=== PATIENT | male | born 1990 | race Caucasian/White ===

== ENCOUNTER → 2016-11-06 | Outpatient (REF) | payer OTHER ==
[~2016-11-06] MED LIST: /ESCI10TA OR; BUSP5TA PO; CYCL10TA PO; DEPA250T2 PO; DEPA500T2 PO; FLEXERIL PO; FLUO20CA8 PO; NAPR500T OR; NAPR500T2 PO; OMEP20TA7 OR
[2016-11-10 08:57] LABS: FREE T4 1.1 NG/DL (0.76-1.46)
== END ==
LOC: M SFHCPLAZ 14:03
DX: M54.6 Pain in thoracic spine (principal); F41.9 Anxiety disorder, unspecified

== ENCOUNTER 2018-06-25 00:05 | Emergency (ER) | payer OTHER ==
[2018-06-25 01:08] LABS: BASO % 0.3 % (0.0-1.0); EOS # 0.1 10^3/uL (0.0-0.50); EOS % 0.6 % (0.0-3.0); HEMATOCRIT 43.4 % (42.0-52.0); HEMOGLOBIN 15.2 g/dl (13.5-17.5); IMMATURE GRANULOCYTE % 0.4 % (0-3.0); LYMPH # 1.7 10^3/uL (1.5-6.5); LYMPH % 10.9 % (24.0-44.0); MEAN CORPUSCULAR HEMOGLOBIN 32.2 pg (27.0-33.0); MEAN CORPUSCULAR VOLUME 91.9 fl (80.0-96.0); MONO % 6.1 % (0.0-5.0); NEUTROPHILS # 12.7 10^3/uL (1.8-7.7); NEUTROPHILS % 81.7 % (36.0-66.0); PLATELET COUNT, AUTOMATED 143 10^3/uL (150-450); RED BLOOD COUNT 4.72 10^6/uL (4.30-6.10); RED CELL DISTRIBUTION WIDTH 12.1 % (11.5-14.5); WHITE BLOOD COUNT 15.5 10^3/uL (4.0-10.0)
[2018-06-25 01:33] LABS: ANION GAP 10 MEQ/L (8-16); BLOOD UREA NITROGEN 10 MG/DL (7-18); CALCIUM LEVEL 8.3 MG/DL (8.5-10.1); CARBON DIOXIDE LEVEL 24 MEQ/L (21-32); CHLORIDE LEVEL 110 MEQ/L (98-107); CREATININE FOR GFR 0.84 MG/DL (0.70-1.30); ETHYL ALCOHOL (ETHANOL) 0.164 % (0.000-0.010); GLOMERULAR FILTRATION RATE > 60.0 (>60); GLUCOSE, FASTING 90 MG/DL (70-100); POTASSIUM SERUM 3.5 MEQ/L (3.5-5.1); SODIUM LEVEL 144 MEQ/L (136-145)
[2018-06-25 01:48] LABS: AMPHETAMINES LEVEL URINE NEGATIVE (NEGATIVE); BARBITURATES URINE NEGATIVE (NEGATIVE); BENZODIAZEPINES URINE NEGATIVE (NEGATIVE); CANNABINOIDS URINE POSITIVE (NEGATIVE); COCAINE METABOLITE URINE NEGATIVE (NEGATIVE); METHADONE URINE NEGATIVE (NEGATIVE); OPIATES URINE NEGATIVE (NEGATIVE); PHENCYCLIDINE URINE NEGATIVE (NEGATIVE)
[2018-06-25] MEDS: ONDANSETRON 4MG/2ML VIAL (J2405) IV (02:04)
[2018-06-25] MEDS: MORPHINE 4 MG/ML 1ML VIAL/SYRINGE (J2270) IV (02:05)
== END 2018-06-25 03:12 | disposition short-term general hospital (02) ==
LOC: M ED 00:05
DX: S42.421A Displaced comminuted supracondylar fracture without intercondylar fracture of right humerus, initial encounter for closed fracture (principal); V49.88XA Car occupant (driver) (passenger) injured in other specified transport accidents, initial encounter; Y92.410 Unspecified street and highway as the place of occurrence of the external cause; Z79.899 Other long term (current) drug therapy
CPT/HCPCS: J2270

== ENCOUNTER 2019-08-15 19:59 | Emergency (ER) | payer OTHER, SELFPAY ==
[~2019-08-15] VITALS: Ht 170.2 cm; Wt 52.3 kg
[~2019-08-15 19:59] MED LIST changes: -/ESCI10TA OR; +FLUO20CA20 PO; -FLUO20CA8 PO; +LEXA1TAB OR; +NAPR-885 PO; -NAPR500T2 PO
[2019-08-15] MEDS ORDERED: KETOROLAC 30 MG/ML VIAL (J1885) IV ONE (22:30)
[2019-08-15] MEDS ORDERED: CLINDAMYCIN 600 MG in IV 1 EA IV ONE (22:30)
[2019-08-15 22:34] LABS: BASO % 0.3 % (0.0-1.0); EOS # 0.1 10^3/uL (0.0-0.5); EOS % 1.3 % (0.0-3.0); HEMATOCRIT 49.5 % (42.0-52.0); HEMOGLOBIN 16.3 g/dl (13.5-17.5); LYMPH # 2.2 10^3/uL (1.5-5.0); LYMPH % 19.9 % (24.0-44.0); MEAN CORPUSCULAR HEMOGLOBIN 31.8 pg (27.0-33.0); MEAN CORPUSCULAR HGB CONC 32.9 g/dl (32.0-36.5); MEAN CORPUSCULAR VOLUME 96.5 fl (80.0-96.0); MONO % 9.6 % (0.0-5.0); NEUTROPHILS # 7.4 10^3/uL (1.5-8.5); NEUTROPHILS % 68.5 % (36.0-66.0); PLATELET COUNT, AUTOMATED 194 10^3/uL (150-450); RED BLOOD COUNT 5.13 10^6/uL (4.30-6.10); WHITE BLOOD COUNT 10.8 10^3/uL (4.0-10.0)
[2019-08-15 22:54] LABS: ERYTHROCYTE SEDIMENTATION RATE 7 mm/hr (0-15)
[2019-08-15] MEDS ORDERED: ISOVUE-370 76% 100ML VIAL (Q9967) As Ordered ONE (23:17)
--- NOTE | 2019-08-16 00:29 | REPVR ---
PROCEDURE INFORMATION: Exam: CT Maxillofacial With Contrast Exam date and time: 08/15/2019 11:33 PM Age: 28 years old Clinical history: Jaw pain; Additional info: Tooth abscess, PT tender L maxillary sinus area, swelling TECHNIQUE: Imaging protocol: Computed tomography images of the face with intravenous contrast. Radiation optimization: All CT scans at this facility use at least one of these dose optimization techniques: automated exposure control; mA and/or kV adjustment per patient size (includes targeted exams where dose is matched to clinical indication); or iterative reconstruction. Contrast material: ISOVUE 370; Contrast volume: 75 ml; Contrast route: IV; COMPARISON: CT Head without contrast 06/25/2018 12:59:14 AM FINDINGS: Orbits: The globes and orbits are intact and normal in appearance. Mastoid air cells: Normal. No mastoid effusion. Auditory system: The middle ear spaces are clear. Sinuses: The sinuses are clear. No air-fluid levels are noted in the sinuses. Bones/joints: There is no fracture or dislocation. The temporomandibular joints are unremarkable. Nasal cavity: There is a 4 mm nasal septal spur projecting to the left of midline. Dental: Several teeth are missing. There are dental caries and a periapical abscess involving the right upper third molar. There are dental caries involving the right upper first and second molars and right upper canine. There are dental caries and a periapical abscess involving the right upper lateral incisor. There are dental caries and a periapical abscess involving the left upper lateral incisor. There are dental caries involving the left upper canine and left upper first premolar. There are dental caries involving the left lower first premolar, left lower canine, right lower lateral incisor, and right lower canine. The periapical abscesses involving both upper lateral incisors erode the buccal cortex of the maxillary alveolar ridge. Nasopharynx: Unremarkable. Oropharynx: There is a punctate calcification in the left palatine tonsil, which represents a palatine tonsillolith and is the sequela of prior infection and/or inflammation. No significant tonsillar hypertrophy. No tonsillar or peritonsillar abscess. Submandibular/Parotid glands: Unremarkable. Soft tissues: There is edema in the soft tissues in the left maxillary region, which is compatible with a left facial cellulitis. There is a 9 mm x 6 mm x 15 mm fluid collection containing punctate foci of gas in the left side of the upper lip adjacent to the left upper canine tooth (image 17 of the coronal series 204). IMPRESSION: Multiple dental caries and periapical abscesses as detailed above, a 9 mm x 6 mm x 15 mm abscess in the left side of the upper lip adjacent to the left upper canine tooth, and left facial cellulitis. Electronically signed by: Neto Catalan On 08/16/2019 00:28:54 AM
[2019-08-16] MEDS ORDERED: AUGM875T28 PO (00:52)
[2019-08-16] MEDS ORDERED: PRED20TA PO (00:52)
[2019-08-16] MEDS ORDERED: AUGMENTIN 875 MG TAB PO ONE (01:00)
[2019-08-16] MEDS ORDERED: predniSONE 20 MG TAB PO ONE (01:00)
[2019-08-16 01:04] VITALS: BP 134/76
== END 2019-08-16 01:05 | disposition home or self-care (01) ==
LOC: M ED 19:59
DX: K04.7 Periapical abscess without sinus (principal); K02.9 Dental caries, unspecified; L03.211 Cellulitis of face; M51.26 Other intervertebral disc displacement, lumbar region; F31.9 Bipolar disorder, unspecified; F17.210 Nicotine dependence, cigarettes, uncomplicated
CPT/HCPCS: 70487; 80047; 85025; 85652; 86140; 96374; 96375; 99283; J1885; Q9967